=== PATIENT | female | born 1970 | race Caucasian/White ===

== ENCOUNTER 2017-03-09 14:30 | Emergency (ER) | payer OTHER ==
[~2017-03-09 14:30] MED LIST: ACETAMINOPHEN PO; ALBUTEROL17 GM INH; AMOXICILLIN875 MG PO; ATARAX PO; BENADRYL25 MG PO; BUSPAR PO; CARAFATE1 G PO; CEFUROXIME250 MG PO; CELEXA20 MG PO; CIPRO500 MG/5 M PO; COLACE PO; DICLOFENAC PO; EC-NAPROSYN500 MG PO; FLEXERIL PO; FLEXERIL10 M1 PO; FLEXERIL10 MG PO; GABAPENTIN800 MG PO; IBUPROFEN PO; KEFLEX500 MG PO; LISINOPRIL PO; LISINOPRIL10 MG PO; LODINE PO; LORTAB 5/500 TA1 TA1 PO; LORTAB 5/500 TA1 TA2 PO; LORTAB 7.51 TAB DOB; MEDROL PO; METHOCARBAMOL500 MG PO; NEURONTIN600 MG PO; NICOTINE TRANSD14 MG EXT; NO MEDICATIONS; NORCO 5/325 TAB1 TAB PO; PHENERGAN25 M1 DOB; PHENERGAN25 M1 PO; PLAQUENIL200 MG PO; PREDNISONE PO; PRILOSEC PO; PROCTOFOAM-HC 110 GM RC; PYRIDIUM100 MG PO; SKELAXIN PO; TESSALON200 MG PO; TOPAMAX PO; TYLOX 5/500 CAP1 CAP PO; URISPAS100 M1 PO; VICODIN 5/1 TAB 5/50 PO; VICODIN 5/500 T1 TAB PO; VICODIN PO; VOLTAREN75 MG PO; ZITHROMAX PO; ZYRTEC PO
[2017-03-09] MEDS ORDERED: QVAR8.7 G1 (14:46)
[2017-03-09 14:51] LABS: URINE SOURCE CLEAN CATCH
[2017-03-09 14:53] LABS: URINE APPEARANCE SL CLOUDY; URINE BILIRUBIN NEG (NEG); URINE BLOOD TRACE-INTACT (NEG); URINE COLOR YELLOW; URINE GLUCOSE NEG (NORM); URINE KETONE NEG (NEG); URINE LEUKOCYTE ESTERASE 2+ (NEG); URINE NITRATE NEG (NEG); URINE PH 6.5 (5-8); URINE PROTEIN TRACE (NEG)
[2017-03-09 14:59] LABS: MICRO INDICATED? YES
[2017-03-09 15:00] LABS: CULTURE INDICATED? YES; URINE BACTERIA 1+ (NEG); URINE SQUAMOUS EPITHELIAL CELL FEW /[HPF]; URINE WBC 100-200 /[HPF] (0-5)
== END 2017-03-09 15:52 | disposition home or self-care (01) ==
LOC: SED 14:30
PROVIDERS: Nurse Practitioner
DX: N30.00 Acute cystitis without hematuria (principal); F17.200 Nicotine dependence, unspecified, uncomplicated; Z88.0 Allergy status to penicillin; Z88.5 Allergy status to narcotic agent; Z88.1 Allergy status to other antibiotic agents; Z88.8 Allergy status to other drugs, medicaments and biological substances; Z79.899 Other long term (current) drug therapy
CPT/HCPCS: 81003; 87086; 87088; 87186; 99283

== ENCOUNTER 2017-03-16 14:37 | Emergency (ER) | payer OTHER ==
[~2017-03-16 14:37] MED LIST changes: +QVAR8.7 G1
[2017-03-16] MEDS ORDERED: BACTRIM DS TAB1 EACH PO (15:10)
[2017-03-16] MEDS ORDERED: PYRIDIUM100 MG PO (15:11)
[2017-03-16 15:48] LABS: URINE SOURCE CLEAN CATCH
[2017-03-16 15:52] LABS: URINE APPEARANCE CLEAR; URINE BILIRUBIN NEG (NEG); URINE BLOOD 3+ (NEG); URINE COLOR YELLOW; URINE GLUCOSE NEG (NORM); URINE KETONE NEG (NEG); URINE LEUKOCYTE ESTERASE NEG (NEG); URINE NITRATE NEG (NEG); URINE PH 5.5 (5-8); URINE PROTEIN NEG (NEG); URINE SPECIFIC GRAVITY >=1.030 (1.003-1.035); URINE UROBILINOGEN 0.2 MG/DL (NORM)
[2017-03-16 15:54] LABS: MICRO INDICATED? YES
[2017-03-16 16:08] LABS: URINE BACTERIA NEG (NEG)
[2017-03-16 16:09] LABS: CULTURE INDICATED? NO; URINE MUCUS PRESENT; URINE SQUAMOUS EPITHELIAL CELL MODERATE /[HPF]
== END 2017-03-16 16:50 | disposition home or self-care (01) ==
LOC: SED 14:37
PROVIDERS: Nurse Practitioner Family
DX: R30.0 Dysuria (principal); I10 Essential (primary) hypertension; J45.909 Unspecified asthma, uncomplicated; F17.210 Nicotine dependence, cigarettes, uncomplicated; Z79.899 Other long term (current) drug therapy; Z88.0 Allergy status to penicillin; Z88.6 Allergy status to analgesic agent; Z88.5 Allergy status to narcotic agent; Z88.8 Allergy status to other drugs, medicaments and biological substances
CPT/HCPCS: 81003; 99283